=== PATIENT | female | born 1960 | race Caucasian/White ===

== ENCOUNTER 2020-03-21 00:14 | Emergency (ER) | payer BC, OTHER ==
--- NOTE | 2020-03-21 00:29 | EDM.PDOC ---
ED HPI GENERAL MEDICAL PROBLEM - General Chief Complaint: Lower Extremity Injury/Pain Stated Complaint: POSS BLOOD CLOT IN LEG Time Seen by Provider: 03/21/20 00:28 Source of Information: Reports: Patient, Family (), RN Notes Reviewed - History of Present Illness INITIAL COMMENTS - FREE TEXT/NARRATIVE: 59 yr old female comes to ED with R lower leg pain and swelling 7 days status post R total knee replacement. She states the surgery went well, discharge home the next day. The lower leg has become more swollen with a lot of bruising the last few days. She started having R post calf pain with walking about a day ago. She started reading about "blood clots" and come to ED now with that concern. No chest pain or difficulty breathing. Knee pain has been getting better. No fever or chills. Right Lower Leg Pain Score (Numeric/FACES): 5 - Related Data Allergies Allergy/AdvReac Type Severity Reaction Status Date / Time No Known Allergies Allergy Verified 03/21/20 00:28 Home Meds: Home Meds Cyanocobalamin (Vitamin B12) [Vitamin B12] 1,000 mcg PO DAILY 03/21/20 [History] FLUoxetine HCl [Prozac] 0 mg PO DAILY 03/21/20 [History] Venlafaxine [Effexor] 75 mg PO BID 03/21/20 [History] Zonisamide 300 mg PO DAILY 03/21/20 [History] oxyCODONE 0 mg PO Q4HR PRN 03/21/20 [History] Review of Systems - Review of Systems Review Of Systems: See Below Constitutional: Denies: Chills, Diaphoresis, Fever Mouth/Throat: Reports: No Symptoms Respiratory: Denies: Shortness of Breath, Pleuritic Chest Pain, Cough Cardiovascular: Denies: Chest Pain, Palpitations GI/Abdominal: Denies: Abdominal Pain, Vomiting Musculoskeletal: Reports: Leg Pain Skin: Reports: Bruising (R lower leg) Neurological: Denies: Numbness, Tingling ED EXAM, GENERAL - Physical Exam Exam: See Below General Appearance: Alert, No Apparent Distress Head: Atraumatic Neck: Supple Respiratory/Chest: No Respiratory Distress, Lungs Clear, Normal Breath Sounds Cardiovascular: Regular Rate, Rhythm Extremities: Joint Swelling (mild swelling R knee, nontender, there is moderate difuse bruising R lower leg clear down to her foot, minimal post calf tenderness, mild swelling R lower leg compared to the left, leg is not red or warm) Neurological: Alert, Oriented, No Motor/Sensory Deficits Course - Vital Signs Last Recorded V/S: Last Vital Signs Temp 97.7 F 03/21/20 00:23 Pulse 78 03/21/20 00:23 Resp 16 03/21/20 00:23 BP 127/82 03/21/20 00:23 Pulse Ox 96 03/21/20 00:23 - Re-Assessments/Exams Free Text/Narrative Re-Assessment/Exam: 03/21/20 01:07 Not going to do a D dimer, suspect it will still be elevated from surgery. I don't believe that US needs to come in for stat US now at 1 AM but do want her to get an US at the 7:30 slot this morning 6 hrs from now. I have offered to let her spend the rest of the night in the ED, let her go home, come back and get her but she prefers to go home now, return in 6 hrs for US R lower extrem. 7:30 AM slot. Order for US written. Discharge instr. as documented. Departure - Departure Time of Disposition: 00:52 Disposition: Home, Self-Care 01 Condition: Fair Clinical Impression: Leg pain - Discharge Information Referrals: Rosendo Cade MD [Primary Care Provider] - Forms: ED Department Discharge Additional Instructions: elevate leg as much as possible, continue daily aspirin. Return for US of leg 7:30 this morning. Return to ED imediately if you develop any type of chest pain or difficulty breathing. Sepsis Event Note (ED) - Evaluation Sepsis Screening Result: No Definite Risk - Focused Exam Vital Signs: Vital Signs Temp Pulse Resp BP Pulse Ox 03/21/20 00:23 97.7 F 78 16 127/82 96
== END 2020-03-21 01:00 | disposition home or self-care (01) ==
LOC: JD.ED 00:14
DX: M79.661 Pain in right lower leg (principal); Z79.899 Other long term (current) drug therapy
CPT/HCPCS: 99282; 99283

== ENCOUNTER 2021-09-03 08:14 | Day surgery (SDC) | payer BC ==
[2021-09-03] MEDS: Polymyxin B/Trimethoprim 10 ML Bottle EYELF SCH ×4 (07:13→08:35)
[2021-09-03] MEDS: Brimonidine 0.2% Ophth Soln 5 ML Bottle EYELF SCH ×4 (07:18→08:35)
[2021-09-03] MEDS: Phenylephrine 2.5% Ophth Soln 2 ML Bot EYELF SCH ×6 (07:22→08:12)
[2021-09-03] MEDS: Tropicamide 1% Ophth Soln 15 ML Bottle EYELF SCH ×4 (07:26→07:56)
[2021-09-03] MEDS: Cefuroxime 10 MG/ML SYRINGE EYELF SCH ×2 (07:57→08:34)
[2021-09-03] MEDS: Lidocaine 1% PF 2 ML SDV INJECT SCH ×2 (07:57→08:24)
[2021-09-03] MEDS: Tetracaine HCl/PF 0.5% 4 ML Bottle EYEBOTH SCH ×3 (07:57→08:23)
[2021-09-03] MEDS: Pilocarpine 4% Ophth Soln 15 ML Bot EYELF SCH ×2 (07:58→08:35)
== END 2021-09-03 08:53 | disposition home or self-care (01) ==
LOC: JD.SDS 08:14
PROVIDERS: ATTEND Ophthalmology
DX: H25.813 Combined forms of age-related cataract, bilateral (principal); E78.00 Pure hypercholesterolemia, unspecified; Z98.890 Other specified postprocedural states
CPT/HCPCS: 66984; C1780; J0697

== ENCOUNTER 2021-10-08 12:44 | Day surgery (SDC) | payer BC ==
[2021-10-08] MEDS: Polymyxin B/Trimethoprim 10 ML Bottle EYERT SCH ×4 (15:07→16:48)
[2021-10-08] MEDS: Brimonidine 0.2% Ophth Soln 5 ML Bottle EYERT SCH ×4 (15:09→16:48)
[2021-10-08] MEDS: Phenylephrine 2.5% Ophth Soln 2 ML Bot EYERT SCH ×6 (15:12→16:41)
[2021-10-08] MEDS: Tropicamide 1% Ophth Soln 15 ML Bottle EYERT SCH ×4 (15:15→15:51)
[2021-10-08] MEDS ORDERED: Midazolam 1 MG/ML 2 ML SDV ONE (16:08)
[2021-10-08] MEDS: Tetracaine HCl/PF 0.5% 4 ML Bottle EYEBOTH SCH ×5 (16:11→16:41)
[2021-10-08] MEDS: Lidocaine 1% PF 2 ML SDV INJECT SCH ×2 (16:38→16:41)
[2021-10-08] MEDS: Cefuroxime 10 MG/ML SYRINGE EYERT SCH ×2 (16:41→16:48)
[2021-10-08] MEDS: Pilocarpine 4% Ophth Soln 15 ML Bot EYERT SCH ×2 (16:42→16:48)
== END 2021-10-08 17:15 ==
LOC: JD.SDS 12:44
PROVIDERS: ATTEND Ophthalmology
DX: H25.811 Combined forms of age-related cataract, right eye (principal); E78.00 Pure hypercholesterolemia, unspecified; G40.909 Epilepsy, unspecified, not intractable, without status epilepticus; F41.9 Anxiety disorder, unspecified; F32.A Depression, unspecified; H91.90 Unspecified hearing loss, unspecified ear; Z79.899 Other long term (current) drug therapy
CPT/HCPCS: 66984; C1780; J0697; J2250